=== PATIENT | female | born 1995 | race Caucasian/White ===

== ENCOUNTER 2018-09-30 11:18 | Emergency (ER) | payer OTHER ==
[~2018-09-30] VITALS: Ht 167.6 cm; Wt 118.4 kg
[~2018-09-30 11:18] MED LIST: FAMO-119 PO; FERR240T9; POLY119P5 PO; SUCR1ORA5 PO
--- NOTE | 2018-09-30 11:35 | ED Chest Pain ---
General Chief Complaint: Chest Pain Stated Complaint: CHEST PAIN Source: patient Exam Limitations: no limitations History of Present Illness Date Seen by Provider: Sep 30, 2018 Time Seen by Provider: 11:32 Initial Comments To ER per private vehicle from home with reports of chest pain. This is the center of her chest tight and intermittently sharp. This began this morning at 7 AM while she was driving. She states that she was anxious at the time and is always anxious. She does have a little shortness of breath. She's never had this before. Aside from history of vasovagal reactions such as with getting her eyes dilated or blood draws she has no medical problems. She takes no medications. Timing/Duration: 1-3 hours, changing over time Severity/Quality: moderate Location: central Radiation: no radiation Activities at Onset: none Prior CP/Workup: no prior chest pain ASA po APPLIANCE SERVICER: No NTG SL APPLIANCE SERVICER: No Associated Symptoms: No nausea/vomiting Allergies and Home Medications Allergies Coded Allergies: No Known Drug Allergies (Unverified , 06/20/15) Home Medications Famotidine 20 Mg Tablet, 20 MG PO BID Prescribed by: CAMRON NUNO on 06/20/151912 Polyethylene Glycol 3350 119 Gm Powder, 17 GM PO HS PRN for CONSTIPATION Prescribed by: CAMRON NUNO on 06/20/151912 Sucralfate 1 Gm/10 Ml Oral.susp, 1 GM PO QID Prescribed by: CAMRON NUNO on 06/20/151912 Patient Home Medication List Home Medication List Reviewed: Yes Review of Systems Review of Systems Constitutional: see HPI EENTM: No Symptoms Reported Respiratory: See HPI, Shortness of Air Cardiovascular: See HPI, Chest Pain; Denies Edema, Denies Irregular Heart Rate, Denies Lightheadedness, Denies Palpitations, Denies Syncope Gastrointestinal: See HPI; Denies Abdominal Pain, Denies Nausea Genitourinary: No Symptoms Reported Musculoskeletal: no symptoms reported Skin: no symptoms reported Psychiatric/Neurological: No Symptoms Reported Endocrine: No Symptoms Reported Hematologic/Lymphatic: No Symptoms Reported Past Qrctyrv-Sunzyh-Brmnyi Hx Patient Social History Recent Foreign Travel: No Contact w/Someone Who Travel: No Past Medical History Anxiety Family Medical History No Pertinent Family Hx Physical Exam Vital Signs Vital Signs - First Documented Capillary Refill : Less Than 3 Seconds Height, Weight, BMI Height: 5'6" Weight: 210lbs. oz. [id number]; BMI Method:Stated General Appearance: No Apparent Distress, WD/WN, Anxious, Other (she did have a vasovagal reaction immediately after the IV start manifested by transient shilpa ycardia rate in the 40s and transient hypotension as low as 85 systolic. I entered the room just after this occurred and she was diaphoretic with this mentating well.) Cardiovascular: Normal Peripheral Pulses, Bradycardia Gastrointestinal: Non Tender, Soft Extremity: Normal Capillary Refill, Normal Inspection Neurologic/Psychiatric: Alert, Oriented x3 Skin: Normal Color, Warm/Dry Progress/Results/Core Measures Results/Orders Lab Results Laboratory Tests Test 09/30/18 11:25 09/30/18 13:31 Range/Units White Blood Count 14.5 H 4.3-11.0 10^3/uL Red Blood Count 4.30 L 4.35-5.85 10^6/uL Hemoglobin 11.7 11.5-16.0 G/DL Hematocrit 36 35-52 % Mean Corpuscular Volume 83 80-99 FL Mean Corpuscular Hemoglobin 27 25-34 PG Mean Corpuscular Hemoglobin Concent 33 32-36 G/DL Red Cell Distribution Width 14.1 10.0-14.5 % Platelet Count 422 H 130-400 10^3/uL Mean Platelet Volume 10.8 H 7.4-10.4 FL Neutrophils (%) (Auto) 63 42-75 % Lymphocytes (%) (Auto) 29 12-44 % Monocytes (%) (Auto) 7 0-12 % Eosinophils (%) (Auto) 1 0-10 % Basophils (%) (Auto) 0 0-10 % Neutrophils # (Auto) 9.1 H 1.8-7.8 X 10^3 Lymphocytes # (Auto) 4.2 H 1.0-4.0 X 10^3 Monocytes # (Auto) 1.0 0.0-1.0 X 10^3 Eosinophils # (Auto) 0.1 0.0-0.3 10^3/uL Basophils # (Auto) 0.0 0.0-0.1 10^3/uL Neutrophils % (Manual) 66 % Lymphocytes % (Manual) 29 % Monocytes % (Manual) 3 % Eosinophils % (Manual) 1 % Basophils % (Manual) 0 % Band Neutrophils 1 % Blood Morphology Comment NORMAL D-Dimer <= 0.27 0.00-0.49 UG/ML Sodium Level 137 135-145 MMOL/L Potassium Level 4.0 3.6-5.0 MMOL/L Chloride Level 107 98-107 MMOL/L Carbon Dioxide Level 21 21-32 MMOL/L Anion Gap 9 5-14 MMOL/L Blood Urea Nitrogen 8 7-18 MG/DL Creatinine 0.84 0.60-1.30 MG/DL Estimat Glomerular Filtration Rate > 60 BUN/Creatinine Ratio 10 Glucose Level 86 70-105 MG/DL Calcium Level 10.1 8.5-10.1 MG/DL Corrected Calcium 9.9 8.5-10.1 MG/DL Magnesium Level 2.3 1.8-2.4 MG/DL Total Bilirubin 0.3 0.1-1.0 MG/DL Aspartate Amino Transf (AST/SGOT) 17 5-34 U/L Alanine Aminotransferase (ALT/SGPT) 14 0-55 U/L Alkaline Phosphatase 78 40-136 U/L Troponin I < 0.028 <0.028 NG/ML Total Protein 7.5 6.4-8.2 GM/DL Albumin 4.2 3.2-4.5 GM/DL Thyroid Stimulating Hormone (TSH) 1.88 0.35-4.94 UIU/ML Serum Test, Qualitative NEGATIVE NEGATIVE Urine Color YELLOW Urine Clarity CLEAR Urine pH 7 5-9 Urine Specific [place] 1.010 L 1.016-1.022 Urine Protein NEGATIVE NEGATIVE Urine Glucose (UA) NEGATIVE NEGATIVE Urine Ketones NEGATIVE NEGATIVE Urine Nitrite NEGATIVE NEGATIVE Urine Bilirubin NEGATIVE NEGATIVE Urine Urobilinogen NORMAL NORMAL MG/DL Urine Leukocyte Esterase 1+ H NEGATIVE Urine RBC (Auto) NEGATIVE NEGATIVE Urine RBC NONE /HPF Urine WBC 5-10 H /HPF Urine Squamous Epithelial Cells 0-2 /HPF Urine Crystals NONE /LPF Urine Bacteria TRACE /HPF Urine Casts NONE /LPF Urine Mucus NEGATIVE /LPF Urine Culture Indicated YES My Orders Orders - TODD ZAPATA APRN Cbc With Automated Diff (09/30/18 11:32) Comprehensive Metabolic Panel (09/30/18 11:32) Hcg,Qualitative Serum (09/30/18 11:32) Chest 1 View, Ap/Pa Only (09/30/18 11:32) Troponin I (09/30/18 11:32) Magnesium (09/30/18 11:32) Thyroid Stimulating Hormone (09/30/18 11:32) Fibrin Degradation Products (09/30/18 11:32) Lactated Ringers (Lr 1000 Ml Iv Solution (09/30/18 11:45) Alprazolam Tablet (Xanax Tablet) (09/30/18 11:45) Manual Differential (09/30/18 11:25) Ekg Tracing (09/30/18 11:39) Ua Culture If Indicated (09/30/18 11:49) Lactated Ringers (Lr 1000 Ml Iv Solution (09/30/18 12:30) Urine Culture (09/30/18 13:31) Medications Given in ED Current Medications Medications Dose Ordered Sig/Atilio Route Start Time Stop Time Status Last Admin Dose Admin Alprazolam 0.25 mg ONCE ONCE PO 09/30/18 11:45 09/30/18 11:46 DC 09/30/18 12:43 0.25 MG Lactated Ringer's 1,000 ml @ ud STK-MED ONCE IV 09/30/18 12:30 09/30/18 12:37 DC 09/30/18 12:45 1,000 MLS/HR Vital Signs/I&O 09/30/18 09/30/18 11:20 11:20 Temp 99.4 Pulse 107 Resp 20 B/P (MAP) 123/74 (90) Pulse Ox 99 O2 Delivery Room Air Room Air Departure Impression Primary Impression: Chest pain Qualified Codes: R07.9 - Chest pain, unspecified Additional Impression: Urinary tract infection Qualified Codes: N30.00 - Acute cystitis without hematuria Disposition: HOME, SELF-CARE Condition: Stable Departure-Patient Inst. Decision time for Depature: 14:12 Referrals: [facility] (PCP/Family) Primary Care Physician Patient Instructions: Urinary Tract Infections in Adults Add. Discharge Instructions: 1. You have a urinary tract infection. Follow-up with [facility] to discuss treatment with a daily medication to help with the anxiety which is contributing to her chest pain. All discharge instructions reviewed with patient and/or family. Voiced understanding. Scripts Cefuroxime Axetil (Cefuroxime) 250 Mg Tablet 250 MG PO BID, #10 TAB Prov: TODD ZAPATA APRN 09/30/18 TODD ZAPATA APRN Sep 30, 2018 11:35
[2018-09-30 11:38] LABS: BASOPHILS % (AUTO) 0 % (0-10); EOSINOPHILS # (AUTO) 0.1 10^3/uL (0.0-0.3); EOSINOPHILS % (AUTO) 1 % (0-10); HEMATOCRIT 36 % (35-52); HEMOGLOBIN 11.7 G/DL (11.5-16.0); LYMPHOCYTES # (AUTO) 4.2 X 10^3 (1.0-4.0); LYMPHOCYTES % (AUTO) 29 % (12-44); MEAN CORPUSCULAR HEMOGLOBIN 27 PG (25-34); MEAN CORPUSCULAR HGB CONC 33 G/DL (32-36); MEAN CORPUSCULAR VOLUME 83 FL (80-99); MEAN PLATELET VOLUME 10.8 FL (7.4-10.4); MONOCYTES % (AUTO) 7 % (0-12); NEUTROPHILS # (AUTO) 9.1 X 10^3 (1.8-7.8); NEUTROPHILS % (AUTO) 63 % (42-75); PLATELET COUNT 422 10^3/uL (130-400); RED CELL DISTRIBUTION WIDTH 14.1 % (10.0-14.5); WHITE BLOOD COUNT 14.5 10^3/uL (4.3-11.0)
[2018-09-30] MEDS ORDERED: LACTATED RINGERS 1,000 ML IV SCH (11:45)
[2018-09-30] MEDS ORDERED: ALPRAZolam 0.25 MG (XANAX) TAB PO ONE (11:45)
[2018-09-30 11:52] LABS: ALANINE AMINOTRANSFERASE 14 U/L (0-55); ALBUMIN 4.2 GM/DL (3.2-4.5); ALKALINE PHOSPHATASE 78 U/L (40-136); BILIRUBIN,TOTAL 0.3 MG/DL (0.1-1.0); BUN/CREATININE RATIO 10; CALCIUM 10.1 MG/DL (8.5-10.1); CARBON DIOXIDE 21 MMOL/L (21-32); CHLORIDE 107 MMOL/L (98-107); CREATININE SERUM 0.84 MG/DL (0.60-1.30); GFR ESTIMATED > 60; GLUCOSE 86 MG/DL (70-105); MAGNESIUM 2.3 MG/DL (1.8-2.4); SODIUM 137 MMOL/L (135-145); TOTAL PROTEIN 7.5 GM/DL (6.4-8.2)
[2018-09-30 12:03] LABS: BAND NEUTROPHILS 1 %; BASOPHILS % (MANUAL) 0 %; EOSINOPHILS % (MANUAL) 1 %; LYMPHOCYTES % (MANUAL) 29 %; MONOCYTES % (MANUAL) 3 %; NEUTROPHILS % (MANUAL) 66 %; RBC MORPH NORMAL
--- NOTE | 2018-09-30 12:22 | Diagnostic Imaging Report ---
Patient History: Chest pain. Technique: Single frontal view of the chest Comparison: None FINDINGS: No focal consolidation is seen. No large pleural effusion or pneumothorax is seen. The cardiomediastinal silhouette is normal in size and contour. No acute osseous abnormality is seen. IMPRESSION: No acute pulmonary abnormality seen. Dictated by: Dictated on workstation # [id number]
[2018-09-30] MEDS ORDERED: LACTATED RINGERS 1,000 ML IV ONE (12:30)
--- OUTSIDE RECORDS SUMMARY | 2018-09-30 12:42 | XMS REPORT | Continuity of Care Document ---
Author Organization Unknown Address Unknown Allergies Active Description Code Type Severity Reaction Onset Reported/Identified Relationship to Patient Clinical Status Yes No Known Drug Allergies [id number] Drug Allergy Unknown N/A 06/20/2015 Medications There is no data. Problems Date Dx Coded Attending Type Code Diagnosis Diagnosed By 06/20/2015 CAMRON DEL REAL Ot K29.70 GASTRITIS, UNSPECIFIED, WITHOUT BLEEDING 06/20/2015 CAMRON DEL REAL Ot K59.00 CONSTIPATION, UNSPECIFIED 06/20/2015 CAMRON DEL REAL Ot N83.20 UNSPECIFIED OVARIAN CYSTS 06/21/2015 CAMRON DEL REAL Ot K29.70 06/21/2015 CAMRON DEL REAL Ot K59.00 06/21/2015 CAMRON DEL REAL Ot N83.20 Procedures There is no data. Results There is no data. Encounters ACCT No. Visit Date/Time Discharge Status Pt. Type Provider Facility Loc./Unit Complaint [id number] 06/20/2015 17:03:00 06/20/2015 19:27:00 DIS Emergency CAMRON DEL REAL [facility] ER
[2018-09-30 13:46] LABS: BILIRUBIN,URINE NEGATIVE (NEGATIVE); CLARITY,URINE CLEAR; COLOR,URINE YELLOW; GLUCOSE, URINE (UA) NEGATIVE (NEGATIVE); KETONES,URINE NEGATIVE (NEGATIVE); LEUKOCYTE ESTERASE ,URINE 1+ (NEGATIVE); NITRITE,URINE NEGATIVE (NEGATIVE); PH,URINE 7 (5-9); PROTEIN,URINE NEGATIVE (NEGATIVE); UROBILINOGEN,URINE NORMAL (NORMAL)
[2018-09-30 14:05] LABS: BACTERIA,URINE TRACE /HPF; SQUAMOUS EPITHELIAL CELL,UR 0-2 /HPF
[2018-09-30] MEDS ORDERED: CEFU250T80 PO (14:13)
[2018-09-30 14:27] VITALS: BP 116/59
== END 2018-09-30 14:27 | disposition home or self-care (01) ==
LOC: ER 11:18 → EDUNIT# 11:18 → ER 14:27
DX: R07.89 Other chest pain (principal); N39.0 Urinary tract infection, site not specified
CPT/HCPCS: 36415; 71045; 80053; 81000; 83735; 84443; 84484; 84703; 85007; 85027; 85379; 87088; 93005; 96360